=== PATIENT | male | born 1990 | race Caucasian/White ===

== ENCOUNTER 2017-02-18 11:50 | Emergency (ER) | payer MEDICARE, OTHER ==
[2017-02-18 12:09] VITALS: BP 124/85
[2017-02-18] MEDS: DIPH,PERTUSS(ACELL),TET VAC/PF 0.5 ML DISP.SYRIN IM ONE (13:57)
--- NOTE | 2017-02-18 14:03 | ED Physician Documentation ---
General Adult - HISTORIAN Historian: patient, parent - HPI Stated Complaint: laceration Chief Complaint: Laceration/Recheck/Suture Additional Information: accidental lac rt pinky finger diatal tip w/scissors this am 1130 Timing: still present, other (bled significantly none now) Severity: mild - ROS CONST: no problems EYES/ENT: none CVS/RESP: none GI/: none MS/SKIN/LYMPH: none NEURO/PSYCH: denies: headache, fainting, dizziness - PAST HX Past History: other (aspergers ds) Immunizations: denies: UTD Allergies/Adverse Reactions: Allergies Allergy/AdvReac Type Severity Reaction Status Date / Time No Known Drug Allergies Allergy Verified 02/18/17 12:10 Home Medications: Ambulatory Orders Medication Instructions Recorded Propranolol HCl [Inderal] 60 mg PO DAILY u2 01/11/17 Quetiapine Fumarate [Seroquel] 50 mg PO 1 Tab AM 1/2 tab pm u2 01/11/17 - SOCIAL HX Smoking History: non-smoker Alcohol Use: none Drug Use: none - FAMILY HX Family History: No - VITAL SIGNS Vital Signs: Vital Signs Temp Pulse Resp BP Pulse Ox 98.2 F 73 20 124/85 96 02/18/17 12:06 02/18/17 12:06 02/18/17 12:06 02/18/17 12:06 02/18/17 12:06 - REVIEWED ASSESSMENTS Nursing Assessment Reviewed: Yes Vitals Reviewed: Yes Procedures Wound Location: upper extremity Wound's Depth, Shape: superficial, linear Wound Explored: clean Betadine Prep?: Yes Wound Repaired With: Dermabond Sterile Dressing Applied?: Yes ED Results Lab/Radiology - Orders Orders: ED Orders Category Date Time Status Skin Adhesive NOW Care 02/18/17 14:00 Ordered Diph,Pertuss(Acell),Tet Vac/Pf [Adacel] Med 02/18/17 13:57 Once 0.5 ml IM .ONCE ONE General Adult Physical Exam - PHYSICAL EXAM GENERAL APPEARANCE: mild distress EENT: eye inspection normal NECK: normal inspection RESPIRATORY: no resp distress CVS: reg rate & rhythm, heart sounds normal ABDOMEN: soft, non-tender EXTREMITIES: normal range of motion, no edema. No: no evidence of injury NEURO: oriented X3, motor nml, sensation nml, mood/affect nml Discharge Clincal Impression: Laceration of finger Referrals: Isaac Woods MD [Primary Care Provider] - 2 Days Home Medications: Ambulatory Orders Propranolol HCl [Inderal] 60 mg PO DAILY u2 01/11/17 Quetiapine Fumarate [Seroquel] 50 mg PO 1 Tab AM 1/2 tab pm u2 01/11/17 Comments: keep clean dry chg dressing prn Condition: Good Disposition: 01 HOME, SELF-CARE Decision to Admit: NO Decision Time: 14:02
== END 2017-02-18 14:06 | disposition home or self-care (01) ==
LOC: ED 11:50
DX: S61.216A Laceration without foreign body of right little finger without damage to nail, initial encounter (principal); X58.XXXA Exposure to other specified factors, initial encounter; Y93.9 Activity, unspecified; Y99.9 Unspecified external cause status
CPT/HCPCS: 90471; 90715; 99283

== ENCOUNTER 2017-08-03 08:26 | Outpatient (CLI) | payer MEDICARE, OTHER ==
[2017-08-03 08:53] LABS: BASOPHILS % 0.9 (0.0-1.5); EOSINOPHILS % 2.1 % (0.0-6.8); MEAN CORPUSCULAR HEMOGLOBIN 33.2 pg (28.0-34.0); MEAN CORPUSCULAR VOLUME 90.8 fl (80.0-100.0); MONOCYTES % 6.7 % (0.0-11.0); NEUTROPHILS # 3.3 # k/uL (1.4-7.7)
[2017-08-03 09:21] LABS: eGFR (African) > 60; eGFR (Non-African) > 60
== END 2017-08-03 08:27 ==
LOC: LAB 08:26
PROVIDERS: ATTEND Nurse Practitioner Psychiatric/Mental Health
DX: Z79.899 Other long term (current) drug therapy (principal)
CPT/HCPCS: 36415; 80053; 80061; 83036; 84439; 84443; 85025